=== PATIENT | female | born 1975 | race Caucasian/White ===

== ENCOUNTER 2021-12-10 14:14 | Outpatient (CLI) | payer OTHER, SELFPAY ==
--- OUTSIDE RECORDS SUMMARY | 2021-11-06 10:28 | XMS_ITS | Continuity of Care Document ---
:1975 Author Care Team Providers Name Role Phone MD Lauren Sims Primary Care Physician MD David Camacho Attending Physician Allergies, Adverse Reactions, Alerts Allergen Type Severity Reaction Last Updated Verified Status Dust Allergy Unknown noted in June Yes Active previous med 2021 records received. Social History Smoking Status Status Start Date End Date Date of Observat ion Never smoked tobacco July 102021 (finding) 1:26pm Observation Status Observation Response Date of Response August 09, 2017 6:2 9pm Non-smoker August 09, 2017 6:2 9pm Additional Data Assigned Sex Female Problems Active Problems Medical Problem Onset Date Status Diabetes mellitus, type II Active Hyperlipidemia Active Hypothyroidism Active Eczema September 27, 2013 Active Finger joint swelling Active Tenosynovitis, de Quervain Active Chronic anemia Active Microcytic anemia Active Class 3 severe obesity with serious Acti ve comorbidity and body mass index (BMI) of 40.0 to 44.9 in adult Well woman exam with routine Active gynecological exam Plantar fasciitis of right foot Active History of appendectomy Active History of umbilical hernia repair Activ e Inactive/Resolved Problems Medical Problem Onset Date Status UTI (urinary tract infection) Resolved Dry mouth Resolved Medications Medication Status Dose Units Route Directions Qty Days Start End Ins tructions Date Date Betamethasone Active 1 GEOVANNI TOP Twice A Day May Dipropion as needed 2021 (Betamethason 9:38am e Dipropionate Cream (Augmented)) 0.05 % CRE Diabetic Active 1 TEST XX Daily 200 Decembe DX: E11. 9 Supplies: r 23rd, Lancets (One 2018 Touch 8:19am Ultrasoft Lancets) MIS Diabetic Active 1 KIT XX Once 1 Decembe DX: E11. 9 Supplies: r 23rd, Meter 2018 (Onetouch 8:19am Verio Iq Meter) Verio Iq KIT Diabetic Active 1 TEST EXT Twice A Day May us e to check Supplies: , blood suga r Test Strips 2020 twice da ken (Accu-Chek 9:26am Audrey Plus Tests Strips) OSMANY Diabetic Active 1 TEST EXT Twice A Day May us e to test Supplies: , blood suga r Test Strips 2020 twice da ken (Onetouch 3:08pm Verio Test Strip) Verio OSMANY Levothyroxine Active 175 MCG PO Daily November Sodium 2020 1:14pm Medroxyproges Active 10 MG PO Daily 22 September Use e very 3 months if you have no cycle terone , 1 tab PO luanne y x10 days Acetate 2018 2:27pm Metformin Hcl Active 1000 MG PO Daily May (Metformin , Hcl Er) 500 2021 Mg TABCR 9:38am Semaglutide Active 0.5 MG SUBQ Every 7 16 September (Ozempic Days , (0.25MG Or 2021 0.5 Mg Dose)) 12:24pm 2 Mg/1.5 Ml INJ Betamethasone Disconti 1 GEOVANNI TOP Twice A Day 50 Februar J camilo Dipropion nued as needed y 6th, y Augmented 2019 04, (Betamethason 2:34pm 2021 e 9:38am Dipropionate Cream (Augmented)) 0.05 % CRE Betamethasone Disconti 1 GEOVANNI TOP Twice A Day 15 Februar N ovemb Dipropion nued as needed y 17, er Augmented 2014 12, (Betamethason 4:19pm 2016 e 11:17a Dipropionate m Cream (Augmented)) 0.05 % CRE Betamethasone Disconti 1 GEOVANNI TOP Twice A Day 15 Septemberb chirag Dipropion nued as needed 15th, ry Augmented 2013, (Betamethason 9:37am 2014 e 4:19pm Dipropionate Cream (Augmented)) 0.05 % CRE Calcipotriene Disconti 1 GM EXT Daily Decemberr A PPLY TO (Dovonex nued 24th, y AFFECTED AR EA 0.005 % 2014, BEHIND LEFT Cream) 60 Gm 11:33am 2018 EAR D AILY TUBE 2:12pm Ciprofloxacin Disconti 1 TABLET PO Twice A Day 19 July Ap ril Hcl nued , , 2014 2014 1:21pm 4:08pm Ciprofloxacin Disconti 500 MG PO Twice A Day 29 May M ay Hcl (Cipro) nued , , 500 Mg TAB 2013 2013 8:36am 8:52am Clarithromyci Disconti 180 Novemb n nued er 2016 11:17a m Clindamycin Disconti 300 MG PO Three Times November Hcl nued A Day , 2015 10:43am 3:57pm Clindamycin Disconti 300 MG PO Three Times November Hcl nued A Day 2015 2:49pm 10:18a m Diabetic Disconti 1 TEST EXT Twice A Day 200 Februar Decemb use to check Supplies: nued y 5th, er blood sug ar Lancets 2018, twice daily (Accu-Chek 11:19am 2018 Fastclix 8:19am Lancets) Lancets MIS Diabetic Disconti 1 TEST EXT Twice A Day 200 Decembe Februa use to check Supplies: nued r 20th, ry blood anaya gar Lancets 2017 09, twice daily (Accu-Chek 1:08pm 2018 Fastclix 11:19a Lancets) m Lancets MIS Diabetic Disconti 1 TEST EXT Twice A Day 200 Novembe Novemb Use to test Supplies: nued r 13, er blood anaya gar Lancets 2016, twice daily (Onetouch 11:49am 2017 Delica 4:02pm Lancets Ultrafine 33G) Lancets MIS Diabetic Disconti 1 KIT EXT Once 1 Februar Decemb use t o check Supplies: nued y 5th, er blood sug ar Meter 2018, twice daily (Accu-Chek 11:19am 2018 Audrey Plus 8:19am Meter) KIT Diabetic Disconti 1 KIT EXT Once 1 Decembe Februa use t o check Supplies: nued r 20th, ry blood anaya gar Meter 2017 09, twice daily (Accu-Chek 1:08pm 2018 Audrey Plus 11:19a Meter) KIT m Diabetic Disconti 1 TEST EXT Twice A Day 200 Decembe Mayuar use to check Supplies: nued r 19th, y 4th, blood s ugar Test Strips 2018 2020 twice da ken (Accu-Chek 8:43am 9:26am Audrey Plus Tests Strips) OSMANY Diabetic Disconti 1 TEST EXT Twice A Day 200 Februar Decemb use to check Supplies: nued y 5th, er blood sug ar Test Strips 2018, twice da ken (Accu-Chek 11:19am 2018 Audrey Plus 8:43am Tests Strips) OSMANY Diabetic Disconti 1 TEST EXT Twice A Day 200 Decembe Februa use to check Supplies: nued r 20th, ry blood anaya gar Test Strips 2017 09, twice da ken (Accu-Chek 1:08pm 2018 Audrey Plus 11:19a Tests Strips) m OSMANY Diabetic Disconti 1 TEST EXT Twice A Day b Use to test Supplies: nued r 13th, er blood anaya gar Test Strips 2016, twice da ken (Onetouch 11:49am 2017 Verio Test 4:02pm Strip) Verio OSMANY Diabetic Disconti 1 TEST XX Twice A Day Supplies: nued r 8th, er Test Strips 2016, (Accu-Chek 11:39am 2016 Audrey Plus 11:49a Tests Strips) m OSMANY Diabetic Disconti 1 TEST XX Daily December Supplies: nued 11th, er Test Strips 2014 12, (Accu-Chek 1:14pm 2016 Audrey Plus 11:39a Tests Strips) m OSMANY Diabetic Disconti 1 TEST XX Daily December Supplies: nued , 11, Test Strips 2013 2014 (Accu-Chek 4:19pm 1:14pm Audrey Plus Tests Strips) OSMANY Diabetic Disconti 1 TEST XX Daily September Supplies: nued 16, , Test Strips 2013 2013 (Accu-Chek 4:43pm 4:19pm Audrey Plus Tests Strips) OSMANY Erythromycin Disconti 1 GEOVANNI TOP Twice A Day December Apply to (Erythromycin nued , , involv ed Gel) 2 % GEL 2014 2015 areas o n feet 11:33am 2:21pm for 3-4 weeks. Fluticasone Disconti 2 SPRAY EACH Daily December Propionate nued NOSTR , , (Nasal) 2014 2015 (Flonase 10:11am 2:21pm Allergy Relief) 50 Mcg/Act SPR Glipizide Disconti 2.5 MG PO Daily 30 ua nued ry 2021 12:56p m Glipizide Disconti 5 MG PO Twice Daily 180 Novem Febru a nued With Meals r 13, ry 2017 6th, 4:02pm 2018 2:44pm Glipizide Disconti 5 MG PO Twice Daily 180 November Novemb nued With Meals 9, er 2017 13, 10:15am 2017 4:02pm Glipizide Disconti 5 MG PO Twice Daily 180 September nued With Meals 14, 2017 2:20pm 10:15a m Glipizide Disconti 5 MG PO Twice Daily 60 July nued With Meals , 2017 1:42pm 2:20pm Influenza [facility] 0.5 [facility] Recomb Hem 2018, (Flublok 8:51am 2018 Quadrivalent 9:00am 2018 0.5 Ml) 1 Inj INJ Influenza Disconti 0.5 ML IM Once 1 Novem Novemb Virus Vaccine nued r 13, er (Fluzone 2017, Quadrivalent 4:11pm 2017 (3 Yrs And 4:20pm Older)2017- ) 1 Inj INJ Influenza Disconti 0.5 ML IM Once Februaryobe Virus Vaccine nued , r Split 2019, (Fluzone 1:05pm 2019 Quadrivalent 1:07pm 2019 0.5 Ml) 1 Inj INJ Influenza Disconti 0.5 ML IM Once 1 Novemb Virus Vaccine nued r , er Split 2016 12, (Fluzone 12:05pm 2016 Quadrivalent 12:07p 2016 0.5 Ml) m 1 Inj INJ Levothyroxine Disconti 175 MCG PO Daily May Sodium nued 2020 9:26am 1:14pm Levothyroxine Disconti 175 MCG PO Daily Septemberr Sodium nued , 2019 3:08pm 9:26am Levothyroxine Disconti 175 MCG PO Daily August Sodium nued 2019 12:25pm 3:08pm Levothyroxine Disconti 175 MCG PO Daily 90 [place] Jazmyne Sodium nued 2018 8:23am 12:25p m Levothyroxine Disconti 175 MCG PO Daily October Sodium nued 2018 8:36am 8:23am Levothyroxine Disconti 200 MCG PO Daily July Ulysses e with Sodium nued 27, 9th, 50mcg tab 2017 2018 daily 1:42pm 9:09am (250mcg/day) Levothyroxine Disconti 25 MCG PO Daily Mayua Take one tablet daily in addition to 200 microgram tablet Sodium nued , ry (225 microgra ms daily total) 2018 6th, 2:35pm 2018 2:44pm Levothyroxine Disconti 25 MCG PO Daily Februaryr Take one tablet daily in addition to 200 microgram tablet Sodium nued , y (225 microgra ms daily total) 2017 25th, 7:45am 2018 2:35pm Levothyroxine Disconti 50 MCG PO Daily July Ta ke one tablet daily in addition to 200 microgram tablet Sodium nued , r (250 microgra ms daily total). 2017, 1:42pm 2017 7:45am Levothyroxine Disconti 200 MCG PO Daily July T sheri with Sodium nued r , , 50mcg tab 2016 2017 daily 5:01pm 1:42pm (250mcg/day) Levothyroxine Disconti 50 MCG PO Daily July T sheri one tablet daily in addition to 200 microgram tablet Sodium nued r , , (250 microg lia daily total). 2016 2017 5:01pm 1:42pm Levothyroxine Disconti 200 MCG PO Daily November Ta ke with Sodium nued 24, er 50mcg tab 2016, daily 4:59pm 2016 (250mcg/day) 5:01pm Levothyroxine Disconti 50 MCG PO Daily November Ta ke one tablet daily in addition to 200 microgram tablet Sodium nued , er (250 microgra ms daily total). 2016, 4:59pm 2016 5:01pm Levothyroxine Disconti 200 MCG PO Daily February T sheri with Sodium nued , 24th, 25mcg tab 2015 2016 daily 2:25pm 4:59pm (225mcg/day) Levothyroxine Disconti 200 MCG PO Daily December T sheri with Sodium nued 11, r 25mcg tab 2014, daily 1:14pm 2015 (225mcg/day) 2:25pm Levothyroxine Disconti 25 MCG PO Daily December T sheri both Sodium nued 11, r 25mcg and 2014, 200mcg daily 1:14pm 2015 (total 2:24pm 225mcg). Levothyroxine Disconti 25 MCG PO Daily August Ta ke both Sodium nued 22nd, 11th, 25mcg and 2014 2014 200mcg daily 10:14am 1:14pm (total 225mcg). Levothyroxine Disconti 200 MCG PO Daily August Ta ke with Sodium nued nd, 11th, 25mcg tab 2014 2014 daily 10:14am 1:14pm (225mcg/day ) Levothyroxine Disconti 25 MCG PO Daily 90 August T sheri both Sodium nued y 17, 22nd, 25mcg and 2014 2014 200mcg daily 4:03pm 10:14a (total m 225mcg). Levothyroxine Disconti 200 MCG PO Daily 90 August T sheri with Sodium nued y 17th, 22nd, 25mcg tab 2014 2014 daily 4:03pm 10:14a (225mcg/day) m Levothyroxine Disconti 200 MCG PO Daily 30 Decemb Sodium nued er (Synthroid) 3rd, 200 Mcg TAB 2013 5:15pm Metformin Hcl Disconti 2000 MG PO Daily 120 May (Metformin nued 5th, y Hcl Er) 500 2021 12th, Mg TABCR 9:39am 2021 9:38am Metformin Hcl Disconti 2000 MG PO Daily November (Metformin nued 7th, y 5th, Hcl Er) 500 2020 2021 Mg TABCR 1:14pm 9:39am Metformin Hcl Disconti 2000 MG PO Daily May (Metformin nued 4th, 7th, Hcl Er) 500 2020 2020 Mg TABCR 9:26am 1:14pm Metformin Hcl Disconti 2000 MG PO Daily 360 October (Metformin nued 2nd, y 4th, Hcl Er) 500 2019 2020 Mg TABCR 4:25pm 9:26am Metformin Hcl Disconti 2000 MG PO Daily 360 October (Metformin nued r 20th, 2nd, Hcl Er) 500 2018 2019 Mg TABCR 3:40pm 4:25pm Metformin Hcl Disconti 2000 MG PO Daily 360 (Metformin nued r 19th, er Hcl Er) 500 2018, Mg TABCR 8:39am 2018 3:40pm Metformin Hcl Disconti 2000 MG PO Daily 360 September (Metformin nued 20th, er Hcl Er) 500 2018, Mg TABCR 9:26am 2018 8:39am Metformin Hcl Disconti 2000 MG PO Daily 360 September (Metformin nued y 6th, 20th, Hcl Er) 500 2018 2018 Mg TABCR 2:44pm 9:26am Metformin Hcl Disconti 2000 MG PO Daily (Metformin nued r 13th, ry Hcl Er) 500 2017 6th, Mg TABCR 4:02pm 2018 2:44pm Metformin Hcl Disconti 2000 MG PO Daily November (Metformin nued 9th, er Hcl Er) 500 2017 13th, Mg TABCR 10:14am 2017 4:02pm Metformin Hcl Disconti 2000 MG PO Daily November (Metformin nued 5th, er Hcl Er) 500 2017 13th, Mg TABCR 2:53pm 2017 3:42pm Metformin Hcl Disconti 2000 MG PO Daily November (Metformin nued 9th, 9th, Hcl Er) 500 2017 2017 Mg TABCR 10:14am 10:14a m Metformin Hcl Disconti 2000 MG PO Daily July (Metformin nued 27th, 5th, Hcl Er) 500 2017 2018 Mg TABCR 1:42pm 2:53pm Metformin Hcl Disconti 2000 MG PO Daily August (Metformin nued 11, 27th, Hcl Er) 500 2016 2017 Mg TABCR 4:12pm 1:42pm Metformin Hcl Disconti 2000 MG PO Daily May (Metformin nued 23rd, 11th, Hcl Er) 500 2016 2016 Mg TABCR 3:56pm 4:12pm Metformin Hcl Disconti 2000 MG PO Daily (Metformin nued y Hcl Er) 500 , Mg TABCR 2017 3:56pm Metformin Hcl Disconti 2000 MG PO Twice A Day November ust (Metformin nued , , Hcl Er) 500 2015 2015 Mg TABCR 2:38pm 12:10p m Metformin Hcl Disconti 500 MG PO Twice A Day 180 Februar J [place] (Metformin nued y , , Hcl Er) 500 2015 2015 Mg TABCR 1:33pm 2:38pm Metformin Hcl Disconti 500 MG PO Daily December (Metformin nued , ry Hcl Er) 500 2014 24, Mg TABCR 12:51pm 2015 1:33pm Metformin Hcl Disconti 500 MG PO Daily December (Metformin nued y 17, , Hcl Er) 500 2014 2014 Mg TABCR 4:04pm 12:51p m Metformin Hcl Disconti 500 MG PO Daily December (Metformin nued 18, ry Hcl Er) 500 2013 17, Mg TABCR 5:18pm 2014 4:04pm Metformin Hcl Disconti 500 MG PO Daily 12 January (Metformin nued , Hcl Er) 500 2014 Mg TABCR 5:18pm Minocycline Disconti 180 Novemb Hcl nued er 2016 11:17a m Pneumococcal Disconti 0.5 ML IM Once 1 Novembe Novemb Polyvalent nued r , er Vaccine 2016 12, (Pneumovax 11:56am 2016) 12:07p Mcg/0.5 Ml m INJ Semaglutide Disconti 1 MG SUBQ Every 7 September (Ozempic nued Days , , (0.25MG Or 2021 2021 0.5 Mg Dose)) 3:26pm 12:24p 2 Mg/1.5 Ml m INJ Semaglutide Disconti 1 MG SUBQ Every 7 May (Ozempic (1 nued Days , , Mg Dose)) 2 2021 2021 Mg/1.5 Ml INJ 9:38am 3:26pm Simvastatin Disconti 10 MG PO Bedtime 12 October nued 2013 8:52am Triamcinolone Disconti 1 GEOVANNI TOP Twice A Day September e Acetonide nued as needed , , (Lotion) 2013 2015 9:37am 1:18pm Vitalizer Disconti 1 PACK PO Daily Decemb Women nued er 2018 8:23am Immunizations Immunization Event Date Not Given Dose [employer] Lot Vac cine Reason Number Number Informatio n Statement (VIS) Deta il COVID-19 Moderna May 162020 COVID-19 Moderna June 172020 Influenza March 16 Sanofi [id number] 2016 Influenza March 17 SANOFI [id number] 2017 Influenza April 17 SANOFI [id number] 2018 Influenza February 16 SANOFI [id number] 2019 Pneumovax Adult December 272011 Pneumovax Adult March 172016 Tdap July 23 (adolescent/adul 2010 t) Advance Directives Advance Directive Response Recorded Date/Time Does Pt have Health Care No July 15, 2015 3:22pm Directive? Has patient completed a No July 10, 1:26pm Health Care Directive? Insurance Providers Guarantor Christine Jones Address [address] [facility] [id number] Contact Info. Home Phone: Payer Policy Id Coverage Id Subscriber's Subscriber Id Effective E xpiration Name Date Date [facility] [id number] Christine Jones December 22, [facility] 2016 Care Plan of Treatment Future Tests Future scheduled test information is unavailable Pending Tests Pending diagnostic test information is unavailable Future Visits Future appointment information is unavailable Referrals to Other Providers Referral information is unavailable Future Procedures Procedure Name Scheduled Date KARIN Bilat Mammo Scrn Future Medications Future medication information is unavailable Patient Instructions Patient instructions are unavailable
--- NOTE | 2021-12-10 14:40 | CRLHL7_ITS ---
For Patients: As a result of the Century Cures Act, medical imaging exams and procedure reports are released immediately into your electronic medical record. You may view this report before your referring provider. If you have questions, please contact your health care provider. BILATERAL MAMMOGRAM WITH COMPUTER-AIDED DETECTION AND TOMOSYNTHESIS TECHNIQUE: CC and MLO views were obtained. These mammographic images have been obtained using full-field digital technique. These mammographic images were interpreted with the benefit of computer-aided detection. Breast Tomosynthesis was used in this interpretation. COMPARISON FILM: 10/24/20, 10/24/19, 08/15/18 FINDINGS: The breasts are heterogeneously dense, which may obscure small masses IMPRESSION: There is no radiographic evidence for malignancy. ASSESSMENT: BI-RADS Category 2: Benign RECOMMENDATION: Routine screening mammogram in 1 year. A lay language report of this examination will be provided to the patient. Lexi Bender M.D. Diagnostic/Breast Radiologist [email or web address] EDWIN/Dictated by: Lexi Bender MD @ 12/11/2021 4:08:00 PM (Electronically Signed)
== END 2021-12-10 14:15 | disposition home or self-care (01) ==
LOC: MAMMO 14:17
PROVIDERS: PCP Family Medicine; Visit Provider Obstetrics & Gynecology
DX: Z12.31 Encounter for screening mammogram for malignant neoplasm of breast (principal); R92.2 Inconclusive mammogram
CPT/HCPCS: 77063; 77067

== ENCOUNTER 2022-03-03 14:53 | Outpatient (CLI) | payer OTHER, SELFPAY ==
--- NOTE | 2022-03-03 15:00 | CRLHL7_ITS ---
For Patients: As a result of the Century Cures Act, medical imaging exams and procedure reports are released immediately into your electronic medical record. You may view this report before your referring provider. If you have questions, please contact your health care provider. INDICATION: MENOMETRORRHAGIA COMPARISON: none TECHNIQUE: 2D pozo scale and color Doppler images were acquired of the pelvis using a transabdominal and transvaginal approach. FINDINGS: Sonographic images demonstrate a normal size and smooth outer contour of the uterus. Uterus measures 8.7 cm in length by 5.5 cm in AP diameter by 5.8 cm in transverse dimension. The myometrium has a heterogeneous echotexture. The endometrial lining appears thickened and measures 15 mm in composite thickness. A hypoechoic left-sided uterine fibroid is present in the mid uterus measuring 1.7 x 1.3 x 1.4 cm. The ovaries are not visualized. There are no suspicious fluid collections within the cul-de-sac. IMPRESSION: Endometrial thickness 15 millimeters. Dictated by Harry Vale MD @ 03/04/2022 10:35:28 AM (Electronically Signed)
== END 2022-03-03 14:54 | disposition home or self-care (01) ==
PROVIDERS: PCP Family Medicine; Visit Provider Obstetrics & Gynecology
DX: N92.1 Excessive and frequent menstruation with irregular cycle (principal); R93.89 Abnormal findings on diagnostic imaging of other specified body structures
CPT/HCPCS: 76830; 76856

== ENCOUNTER 2022-06-01 12:27 | Outpatient (CLI) | payer OTHER, SELFPAY ==
[2022-06-01 21:47] LABS: Albumin* 4.2 g/dL (3.3-5.0); Chloride* 104 mmol/L (96-114); Sodium* 140 mmol/L (135-149)
[2022-06-01 21:48] LABS: Potassium* 4.5 mmol/L (3.6-5.1)
[2022-06-01 21:49] LABS: Bilirubin Total* 0.6 mg/dL (0.1-1.5); Creatinine* 0.7 mg/dL (0.5-1.5); Estimated Glomerular Filt Rate 109 ml/min
[2022-06-01 21:50] LABS: Alanine Aminotransferase* 26 U/L (4-35); Alkaline Phosphatase* 68 U/L (40-150); Aspartate Amino Transferase* 25 U/L (12-35); Blood Urea Nitrogen* 14 mg/dL (5-24); Calcium* 9.5 mg/dL (8.4-10.6); Carbon Dioxide* 27 mmol/L (20-32); Cholesterol* 212 mg/dL (90-199); Glucose* 107 mg/dL (60-115); Lipase* 173 U/L (23-300); Total Protein* 7.4 g/dL (6.0-8.3); Triglycerides* 85 mg/dL (40-149)
[2022-06-01 21:51] LABS: HDL Cholesterol* 60 mg/dL (>=50); LDL Cholesterol Calculated 135 mg/dL (<100); Magnesium* 1.9 mg/dL (1.5-2.6)
[2022-06-01 22:04] LABS: Microalbumin Creatinine Ratio 40 mg/g (0-30); Microalbumin Urine < 1 mg/dL
[2022-06-01 22:17] LABS: TSH With Reflex to FT4* 0.822 uIU/mL (0.270-4.200)
== END 2022-06-01 12:28 | disposition home or self-care (01) ==
PROVIDERS: PCP Family Medicine; Visit Provider Family Medicine
DX: E03.9 Hypothyroidism, unspecified (principal); I10 Essential (primary) hypertension; E11.9 Type 2 diabetes mellitus without complications; E66.01 Morbid (severe) obesity due to excess calories; E78.5 Hyperlipidemia, unspecified
CPT/HCPCS: 80053; 80061; 82043; 82570; 83690; 83735; 84443

== ENCOUNTER 2022-06-03 13:28 | Outpatient (CLI) | payer OTHER, SELFPAY ==
[2022-06-05 23:18] LABS: Rubella Antibody IgG 49.2 IU/mL
[2022-06-06 11:33] LABS: Hepa B Virus Surf Ag Conf Non Confirmed (Non Confirmed)
== END 2022-06-03 13:29 | disposition home or self-care (01) ==
PROVIDERS: PCP Family Medicine; Visit Provider Family Medicine
DX: Z01.419 Encounter for gynecological examination (general) (routine) without abnormal findings (principal); I10 Essential (primary) hypertension; E03.9 Hypothyroidism, unspecified; E66.9 Obesity, unspecified; Z11.3 Encounter for screening for infections with a predominantly sexual mode of transmission
CPT/HCPCS: 84443; 86735; 86762; 86765; 86787; 87341

== ENCOUNTER 2022-12-06 15:40 | Outpatient (CLI) | payer OTHER, SELFPAY ==
--- NOTE | 2022-12-06 16:00 | CRLHL7_ITS ---
For Patients: As a result of the Century Cures Act, medical imaging exams and procedure reports are released immediately into your electronic medical record. You may view this report before your referring provider. If you have questions, please contact your health care provider. INDICATION: Infrequent bleeding TECHNIQUE: Ultrasound pelvis transabdominal and transvaginal for better assessment or to better visualize the endometrium. Real time sonographic images with Spectral and color Doppler imaging of the ovaries were obtained. COMPARISON: 03/03/2022 FINDINGS: Uterus: 1 centimeter x 5.3 centimeter x 6.1 centimeter. Heterogeneous myometrium. 1.9 centimeter fundal submucosal fibroid. 0.2 centimeter posterior left lower uterine segment fibroid. Endometrium: Transvaginal imaging was performed to better evaluate the endometrium. 6 millimeters in thickness. No sign of endometrial mass or fluid. Right ovary: 2.8 centimeter x 1.1 centimeter x 1.0 centimeter. No ovarian or adnexal masses. Normal arterial and venous blood flow. Left ovary: 3.6 centimeter x 1.2 centimeter x 3.5 centimeter. No ovarian or adnexal masses. Normal arterial and venous blood flow. Cul-de-sac: No significant free fluid. IMPRESSION: 1.9 centimeter fundal submucosal fibroid. 1.7 centimeter left posterior lower uterine segment uterine fibroid. Heterogeneous myometrium. Dictated by Harry Barr MD @ 12/06/2022 5:15:48 PM (Electronically Signed)
== END 2022-12-06 15:41 | disposition home or self-care (01) ==
LOC: US 15:41
PROVIDERS: PCP Family Medicine; Visit Provider Obstetrics & Gynecology
DX: N92.1 Excessive and frequent menstruation with irregular cycle (principal); D25.0 Submucous leiomyoma of uterus; D25.9 Leiomyoma of uterus, unspecified
CPT/HCPCS: 76830; 76856

== ENCOUNTER 2022-12-14 11:26 | Outpatient (CLI) | payer OTHER, SELFPAY | END 2022-12-14 11:27 | disposition home or self-care (01) | LOC: NFLDREF 12-16 09:50 | PROVIDERS: PCP Family Medicine; Referring Provider Family Medicine; Visit Provider Physician Assistant Medical | DX: R30.0 Dysuria (principal); N39.0 Urinary tract infection, site not specified; N30.00 Acute cystitis without hematuria | CPT/HCPCS: 87086; 87186 ==

== ENCOUNTER 2023-01-21 09:15 | Outpatient (CLI) | payer OTHER, SELFPAY | END 2023-01-21 09:16 | disposition home or self-care (01) | LOC: NFLDREF 01-22 12:34 | PROVIDERS: PCP Family Medicine; Referring Provider Family Medicine; Visit Provider Family Medicine | DX: E03.9 Hypothyroidism, unspecified (principal); E11.59 Type 2 diabetes mellitus with other circulatory complications; E11.9 Type 2 diabetes mellitus without complications; E78.5 Hyperlipidemia, unspecified; I15.2 Hypertension secondary to endocrine disorders; R53.83 Other fatigue; E66.01 Morbid (severe) obesity due to excess calories | CPT/HCPCS: 80053; 80061; 82043; 82570; 82607; 84439; 84443 ==

== ENCOUNTER 2023-02-04 14:29 | Outpatient (CLI) | payer OTHER, SELFPAY ==
--- NOTE | 2023-02-04 14:40 | CRLHL7_ITS ---
For Patients: As a result of the Century Cures Act, medical imaging exams and procedure reports are released immediately into your electronic medical record. You may view this report before your referring provider. If you have questions, please contact your health care provider. BILATERAL SCREENING MAMMOGRAM WITH COMPUTER-AIDED DETECTION AND TOMOSYNTHESIS TECHNIQUE: CC and MLO views were obtained. These mammographic images have been obtained using full-field digital technique. These mammographic images were interpreted with the benefit of computer-aided detection. Breast tomosynthesis was used in this interpretation. COMPARISON FILM: 12/10/21, 10/24/20, 10/24/19 FINDINGS: The breasts are heterogeneously dense, which may obscure small masses. IMPRESSION: There is no radiographic evidence for malignancy. ASSESSMENT: BI-RADS Category 1: Negative RECOMMENDATION: Routine screening mammogram in 1 year. A lay language report of this examination will be provided to the patient. HARRY TOBAR M.D. Diagnostic Radiologist [email or web address] DEANNA/leyla Transcribed: 02/07/2023, 2:[address]/Dictated by: Harry Tobar MD @ 02/07/2023 10:18:00 AM (Electronically Signed)
== END 2023-02-04 14:30 | disposition home or self-care (01) ==
LOC: MAMMO 14:30
PROVIDERS: PCP Family Medicine; Visit Provider Obstetrics & Gynecology
DX: Z12.31 Encounter for screening mammogram for malignant neoplasm of breast (principal); R92.2 Inconclusive mammogram
CPT/HCPCS: 77063; 77067

== ENCOUNTER 2023-03-23 14:32 | Outpatient (CLI) | payer OTHER, SELFPAY | END 2023-03-23 14:33 | disposition home or self-care (01) | LOC: NFLDREF 03-25 10:48 | PROVIDERS: PCP Family Medicine; Visit Provider Family Medicine | DX: E03.9 Hypothyroidism, unspecified (principal); R53.83 Other fatigue | CPT/HCPCS: 84443 ==

== ENCOUNTER 2023-05-04 11:14 | Outpatient (CLI) | payer OTHER, SELFPAY | END 2023-05-04 11:15 | disposition home or self-care (01) | PROVIDERS: PCP Family Medicine; Visit Provider Family Medicine | DX: Z01.818 Encounter for other preprocedural examination (principal) | CPT/HCPCS: 80053 ==

== ENCOUNTER 2023-05-24 06:02 | Day surgery (SDC) | payer OTHER, SELFPAY ==
[2023-05-24] MEDS: SODIUM CHLORIDE 0.9 % (FLUSH) 10 ML SYRINGE IVF (06:30)
[2023-05-24] MEDS: LACTATED RINGERS 1000 ML 1,000 ML 100 ML IV (06:30)
[2023-05-24 06:33] VITALS: BP 137/93; PULSE 77; RESP 18; TEMP 36.6; O2SAT 98; BMI 41.0
[2023-05-24 06:47] LABS: Ur HCG Qualitative* Negative (Negative)
[2023-05-24 06:50] LABS: Hemoglobin* 12.6 gm/dL (12.0-16.0)
[2023-05-24] MEDS: CEFAZOLIN 1 GM inj 3 GM IVP (07:26)
[2023-05-24] MEDS: BUPIVACAINE 0.5% 30 ML INJECTION (07:36)
--- NOTE | 2023-05-24 07:42 | W.ANESCHARGE ---
Anesthesia Charges Start Date/Time Anesthesia Start Date: 05/24/23 Anesthesia Start Time: 07:22 Stop Date/Time Anesthesia Stop Date: 05/24/23 Anesthesia Stop Time: 07:58
--- NOTE | 2023-05-24 07:51 | W.PM.H&PU ---
History & Physical Update History & Physical Update H&P Reviewed and patient assessed: No changes noted
--- NOTE | 2023-05-24 07:51 | PM.PROC ---
Procedure Note Date Seen: 05/24/23 Will [facility] bill your pro fee for this procedure?: Yes Procedure: Preoperative diagnosis: 48 year-old with menometrorrhagia. Postoperative diagnosis: Same Procedure: Cervical polyp removal. Hysteroscopy, Dilation and Curettage using the Truclear incisor and Mirena IUD insertion. Anesthesia: Conscious sedation, paracervical block. Surgeon: Sonya Huitron MD Health Promotion Officer: None Estimated blood loss: 4 mL Specimen: Cervical polyp, Endometrial curettings to pathology. Findings: Exam under anesthesia: there was a cervical polyp noted at the os of the cervix measuring approximately 0.5 cm in diameter. Uterus: retroverted position, less than 8 week sized, mobile, with no masses or nodularity palpable. Uterus sounded to 8 cm. No adnexal masses or nodularity palpable. On hysteroscopy: Multiple polypoid masses within the uterus otherwise the cavity appeared normal. Procedure: Christine was taken to the operating operating room more conscious sedation was found to be adequate. The patient was placed on in the dorsal lithotomy position and an exam under anesthesia was performed with findings stated above. She was then prepped and draped in a normal sterile manner. A bivalve speculum was placed in the vagina. The cervix appears nulliparous. Otherwise no abnormalities. The paracervical block was placed using 0.5% Marcaine, 10 mL was injected at the 4 and 8 o'clock positions on the cervix. Total of 20 mL was used. The cervical polyp was grasped with a long Allis clamp and twisted off of its base. This was sent to pathology. The posterior lip of the cervix was grasped with a long Allis clamp. The cervix dilated to Hegar 6. The uterus sounded to 8 cm. The Truclear hysteroscope was advanced into the uterus. A diagnostic hysteroscopy was performed with normal saline as the insufflation medium. Findings are stated above. The Truclear incisor was then advanced through the camera. The curettage was performed with the incisor over an approximately 3 minutes. The incisor was then removed. The endometrial cavity appeared normal. Saline deficit at the end of the procedure 200 mL. Total saline used 800 mL. nothing was used for hemostasis. The hysteroscope was removed from the uterus And Allis clamp removed from the cervix.. The Mirena IUD was then inserted per package directions without difficulty. The strings were cut to 3-4 cm. The speculum was removed from the vaginal canal. The patient tolerated the procedure well. Sponge, lap and instrument counts were correct x2 at the end of the procedure. The patient was taken to the recovery area in stable condition. Anesthesia: MAC and local Estimated blood loss (mL): 10 IV fluids (mL): 400 Pathology: specimen obtained, sent to pathology Condition: stable Disposition: same day
[2023-05-24 07:56] VITALS: BP 104/63; PULSE 69; RESP 16; TEMP 36.6; O2SAT 92
[2023-05-24 08:00] VITALS: BP 90/62; PULSE 68; RESP 16; O2SAT 93
[2023-05-24 08:15] VITALS: BP 112/76; PULSE 58; RESP 16; O2SAT 97
--- NOTE | 2023-05-24 08:25 | W.ANESCHARGE ---
Anesthesia Charges Start Date/Time Anesthesia Start Date: 05/24/23 Anesthesia Start Time: 07:22 Stop Date/Time Anesthesia Stop Date: 05/24/23 Anesthesia Stop Time: 07:58
[2023-05-24 08:30] VITALS: BP 110/74; PULSE 56; RESP 16; O2SAT 96
[2023-05-24 08:45] VITALS: BP 111/73; PULSE 57; RESP 16; O2SAT 95
== END 2023-05-24 09:22 | disposition home or self-care (01) ==
PROVIDERS: Anesthesiology; PCP Family Medicine; Visit Provider Obstetrics & Gynecology
PROC: 0UDB8ZZ Extraction of Endometrium, Via Natural or Artificial Opening Endoscopic (ICD-10-PCS; CPT 58558; principal; 2023-05-24 07:15)
DX: N92.1 Excessive and frequent menstruation with irregular cycle (principal); N84.1 Polyp of cervix uteri; Z30.430 Encounter for insertion of intrauterine contraceptive device
CPT/HCPCS: 58558; 58300; 00952; 36415; 81025; 82962; 85018; 88305; J0665; J0690; J1100; J1885; J2250; J2405; J2704; J3010; J7120; J7298

== ENCOUNTER 2023-08-29 15:38 | Outpatient (CLI) | payer OTHER, SELFPAY | END 2023-08-29 15:39 | disposition home or self-care (01) | PROVIDERS: PCP Family Medicine; Visit Provider Family Medicine | DX: E03.9 Hypothyroidism, unspecified (principal); E11.9 Type 2 diabetes mellitus without complications; Z11.59 Encounter for screening for other viral diseases | CPT/HCPCS: 82043; 82570; 84443; 86803 ==

== ENCOUNTER 2024-06-07 12:54 | Outpatient (CLI) | payer OTHER, SELFPAY | END 2024-06-07 12:55 | disposition home or self-care (01) | PROVIDERS: PCP Family Medicine; Visit Provider Family Medicine | DX: E03.9 Hypothyroidism, unspecified (principal); E11.59 Type 2 diabetes mellitus with other circulatory complications; I15.2 Hypertension secondary to endocrine disorders; E78.5 Hyperlipidemia, unspecified; Z79.84 Long term (current) use of oral hypoglycemic drugs; Z79.85 Long-term (current) use of injectable non-insulin antidiabetic drugs; Z13.21 Encounter for screening for nutritional disorder | CPT/HCPCS: 80053; 80061; 82043; 82570; 82607; 84439; 84443 ==

== ENCOUNTER 2024-06-19 16:12 | Outpatient (CLI) | payer OTHER, SELFPAY ==
--- NOTE | 2024-06-19 16:20 | CRLHL7_ITS ---
For Patients: As a result of the Century Cures Act, medical imaging exams and procedure reports are released immediately into your electronic medical record. You may view this report before your referring provider. If you have questions, please contact your health care provider. BILATERAL SCREENING MAMMOGRAM WITH COMPUTER-AIDED DETECTION AND TOMOSYNTHESIS TECHNIQUE: CC and MLO views were obtained. These mammographic images have been obtained using full-field digital technique. These mammographic images were interpreted with the benefit of computer-aided detection. Breast Tomosynthesis was used in this interpretation. COMPARISON FILM: 02/04/23, 10/24/20, 10/24/19. FINDINGS: The breasts are heterogeneously dense, which may obscure small masses IMPRESSION: There is no radiographic evidence for malignancy. ASSESSMENT: BI-RADS Category 1: Negative RECOMMENDATION: Routine screening mammogram in 1 year. A lay language report of this examination will be provided to the patient. Harry Vale M.D. Diagnostic Radiologist [email or web address] Transcribed: 3:07 [email or web address] reyes/Dictated by: Harry Vale MD @ 06/20/2024 10:16:00 AM (Electronically Signed)
== END 2024-06-19 16:13 | disposition home or self-care (01) ==
LOC: MAMMO 16:13
PROVIDERS: PCP Family Medicine; Visit Provider Obstetrics & Gynecology
DX: Z12.31 Encounter for screening mammogram for malignant neoplasm of breast (principal); R92.333 Mammographic heterogeneous density, bilateral breasts
CPT/HCPCS: 77063; 77067

== ENCOUNTER 2024-10-02 07:45 | Outpatient (CLI) | payer OTHER, SELFPAY | END 2024-10-02 07:46 | disposition home or self-care (01) | LOC: NFLDREF 10-10 01:36 | PROVIDERS: PCP Family Medicine; Referring Provider Family Medicine; Visit Provider Family Medicine | DX: E03.9 Hypothyroidism, unspecified (principal); E78.5 Hyperlipidemia, unspecified; E11.65 Type 2 diabetes mellitus with hyperglycemia; Z79.84 Long term (current) use of oral hypoglycemic drugs; Z79.85 Long-term (current) use of injectable non-insulin antidiabetic drugs | CPT/HCPCS: 80053; 82043; 82570; 84443 ==

== ENCOUNTER 2025-04-05 11:29 | Outpatient (CLI) | payer OTHER, SELFPAY | END 2025-04-05 11:30 | disposition home or self-care (01) | LOC: NFLDREF 04-11 14:35 | PROVIDERS: PCP Family Medicine; Referring Provider Family Medicine; Visit Provider Family Medicine | DX: E03.9 Hypothyroidism, unspecified (principal); E11.59 Type 2 diabetes mellitus with other circulatory complications; I15.2 Hypertension secondary to endocrine disorders; E78.5 Hyperlipidemia, unspecified | CPT/HCPCS: 80053; 80061; 82043; 82570; 82607; 84443 ==